=== PATIENT | male | born 1975 | race Caucasian/White ===

== ENCOUNTER 2023-07-01 16:27 | Emergency (ER) | payer SELFPAY ==
--- OUTSIDE RECORDS SUMMARY | 2023-07-01 16:30 | XMS REPORT | Continuity of Care Document ---
:1975 Author Organization [facility] t Address [address] [facility] [address] [place] [address] Care Team Providers Name Role Phone No, Pcp [facility] Primary Care Physician Unavailable LOVELY MALAGON Attending Clinician Unavailable LEO BARROS Attending Clinician Unavailable GABRIELLA MOTTA Attending Clinician Unavailable ANURADHA NELSON Attending Clinician Unavailable LOVELY MALAGON Admitting Clinician Unavailable LEO BARROS Admitting Clinician Unavailable GABRIELLA MOTTA Admitting Clinician Unavailable Payers Payer Name Policy Type Policy Number Effective Date Expiration Date S tracy ISABEL PPO OPEN [id number] 2017 00:00:00 [facility] NAP Problems Condition Condition Condition Status Onset Resolution Last Treating Co mments Source Name Details Category Date Date Treatment Clinician Date Acute on Acute on Disease [facility]ur[facility] pancreat[facility] dical is is 00 Center Abdominal Abdominal Disease Active [facility] Allergies, Adverse Reactions, Alerts Allergy Allergy Status Severity Reaction(s) Onset Inactive Treating Comm ents Source Name Type Date Date Clinician NO KNOWN Allergy Active [facility] Social Habit Start Date Stop Date Quantity Comments Source Sex Assigned At [birth year] LIANNE Jeronimo 00:00:00 [facility]:00 [facility] Medications This patient has no known medications. Vital Signs Vital Name Observation Time Observation Value Comments Source HEIGHT 2020-11-24 06:00:00 173.7 cm WEIGHT 2020-11-24 06:00:00 111.131 kg HEIGHT 2020-11-24 06:00:00 173.7 cm WEIGHT 2020-11-24 06:00:00 111.131 kg Procedures This patient has no known procedures. Plan of Care Planned Activity Planned Date Details Comments Source Future Scheduled 2023-11-27 Lipid panel (procedure) [facility] Test 00:00:00 [code = 50977904] Medical Ce nter Future Scheduled 2023-05-18 Influenza Vaccine (#1) [facility] [code = Influenza Vaccine [facility] Center (#1)] Future Scheduled 2022-09-[address] [facility] Test 00:00:00 (12+) [code = DEPRESSION Med [facility] Center SCREENING (12+)] Future Scheduled 2021-11-26 Screening for malignant [facility] Test 00:00:00 neoplasm of colon Medical Ce nter (procedure) [code = 853026081] Future Scheduled 2021-11-26 Screening for malignant [facility] Test 00:00:00 neoplasm of colon Medical Ce nter (procedure) [code = 547396103] Future Scheduled 1993 DTAP/TDAP/TD VACCINES ([address] [facility] Test 00:00:00 - Tdap) [code = Medical Cent er DTAP/TDAP/TD VACCINES (1 - Tdap)] Future Scheduled 1992-01-23 HEPATITIS C [facility] [code = HEPATITIS C Medical Center SCREENING] Future Scheduled [address] [facility] 00:00:00 virus screening Medical Cent er (procedure) [code = 746367545] Future Scheduled [address] [facility] Test 00:00:00 Counseling and Screening Med [facility] Center (12+) [code = Tobacco Cessation Counseling and Screening (12+)] Future Scheduled 1974 COVID-19 VACCINE (#1) [facility] 00:00:00 [code = COVID-19 VACCINE Med [facility] Center (#1)] Future Scheduled 1974 CT Colonography (combo) [facility] Test 00:00:00 [code = CT Colonography [facility] Center (combo)] Future Scheduled 1974 Screening for malignant [facility] Test 00:00:00 neoplasm of colon Medical Ce nter (procedure) [code = 397681921] Future Scheduled 1974 Screening for malignant [facility] Test 00:00:00 neoplasm of colon Medical Ce nter (procedure) [code = 724822444] Future Scheduled 1975 Sigmoidoscopy [code = [facility] Sigmoidoscopy] Medical Sera ferrera Encounters Start End Encounter Admission Attending Care Care Encounter Source Date/Time Date/Time Type Type Clinicians Facility Department ID 2020-11-24 Inpatient ER [facility] [id number] [facility] 04:53:00 [facility] 2023-06-30 2023-06-30 Inpatient ER PAPO, [facility] [id number] 17:09:00 20:12:00 OLADIPO -[id number] [facility] 2020-11-23 2020-11-24 Inpatient ER ÁNGELA, [facility] [id number] [place] 04:13:00 03:33:00 GABRIELLA -[id number] [facility] 2017-08-25 2017-08-25 Emergency ER NELSON, [facility] [id number] 12:37:00 18:23:00 ANURADHA -[id number] [facility] Results Test Description Test Time Test Comments Results Result Comments Source POCT-GLUCOSE METER 2020-11-26 15:51:00 Test Item Value Reference Range Interpretation Comme nts POC-GLUCOSE METER (BEAKER) 187 mg/dL 70-110 H : TESTED AT [address] (test code = 1538) [facility] [id number]: Operation Research Analyst/Techni bryan ID = [id number] for Alecia Briggs OCCULT BLOOD, [id number] 13:42:00 Test Item Value Reference Range Interpretation Comments FECAL OCCULT BLOOD (BEAKER) (test Negative Negative code = 618) POCT-GLUCOSE [id number] 11:44:00 Test Item Value Reference Range Interpretation Comments POC-GLUCOSE METER 168 mg/dL 70-110 H : TESTED A T [address] (BEAKER) (test code [address], = 15[address]) [facility] [place] [address]: Operation Research Analyst/Techni bryan ID = [id number] for Alecia Deal LIPID [id number] 07:52:00 Test Item Value Reference Range Interpretation Comments TRIGLYCERIDES (BEAKER) (test code 1275 mg/dL = 540) CHOLESTEROL (BEAKER) (test code = 406 mg/dL 631) HDL CHOLESTEROL (BEAKER) (test 17 mg/dL code = 976) Calculated LDL not valid if triglyceride >400 mg/dLTriglyceride Reference Range: Low Risk <150Borderline 150-199 High Risk 200-499 Very High Risk >=500Cholesterol Reference Range: Low Risk <200 Borderline 200-239 High Risk >240HDL Cholesterol Reference Range: Low Risk >=60 High Risk<40LDL Cholesterol Reference Range: Optimal <100 Near Optimal 100-129 Borderline 130-159 High 160-189 Very High >=190 Operation Research Analyst ID - [id number] ID - [id number] ID - [id number] METABOLIC [id number] 07:01:00 Test Item Value Reference Range Interpretation Comments TOTAL PROTEIN 6.7 gm/dL 6.0-8.5 (BEAKER) (test code = 770) ALBUMIN (BEAKER) 3.3 g/dL 3.5-5.0 L (test code = 1145) ALKALINE PHOSPHATASE 80 U/L 30-115 (BEAKER) (test code = 346) BILIRUBIN TOTAL 0.3 mg/dL 0.1-1.2 (BEAKER) (test code = 377) SODIUM (BEAKER) (test 138 meq/L 135-148 code = 381) POTASSIUM (BEAKER) 4.0 meq/L 3.6-5.5 (test code = 379) CHLORIDE (BEAKER) 104 meq/L 98-106 (test code = 382) CO2 (BEAKER) (test 21 meq/L 20-29 code = 355) BLOOD UREA NITROGEN 12 mg/dL 10-26 (BEAKER) (test code = 354) CREATININE (BEAKER) 0.82 mg/dL 0.50-1.20 (test code = 358) GLUCOSE RANDOM 144 mg/dL 70-110 H (BEAKER) (test code = 652) CALCIUM (BEAKER) 8.9 mg/dL 8.5-10.5 (test code = 697) AST (SGOT) (BEAKER) 19 U/L 5-40 (test code = 353) ALT (SGPT) (BEAKER) 23 U/L 5-50 (test code = 347) EGFR (BEAKER) (test 101 ESTIMATE D GFR IS code = 1092) mL/min/1.73 sq NOT ACCURA TE m CREATININE CLEARANCE IN PREDICTING GLOMERULAR FILTRATION RATE . ESTIMATED GFR I S NOT APPLICABLE FOR DIALYSIS PATIEN TS. Operation Research Analyst ID - [id number] ID - [id number] ID - [id number] ID - [id number] ID - [id number] ID - [id number] ID - [id number] ID - [id number] ID - [id number] ID - [id number] ID - [id number] ID - [id number] ID - [id number] ID - [id number] ID - [id number] ID - [id number] 2020-11-26 07:01:00 Test Item Value Reference Range Interpretation Comments LIPASE (BEAKER) (test code = 749) 63 U/L 6-51 H Operation Research Analyst ID - [id number] 06:56:00 Test Item Value Reference Range Interpretation Comments AMYLASE (BEAKER) (test code = 349) 45 U/L 30-110 Operation Research Analyst ID - [id number] W/PLT COUNT & AUTO [id number] 06:45:00 Test Item Value Reference Range Interpretation Comments WHITE BLOOD CELL COUNT (BEAKER) 8.1 K/ L 4.0-10.0 (test code = 775) RED BLOOD CELL COUNT (BEAKER) 3.51 M/ L 4.20-5.80 L (test code = 761) HEMOGLOBIN (BEAKER) (test code = 10.3 GM/DL 13.0-16.8 L 410) HEMATOCRIT (BEAKER) (test code = 30.5 % 36.0-50.0 L 411) MEAN CORPUSCULAR VOLUME (BEAKER) 86.9 fL 82.0-99.0 (test code = 753) MEAN CORPUSCULAR HEMOGLOBIN 29.3 pg 27.0-33.0 (BEAKER) (test code = 751) MEAN CORPUSCULAR HEMOGLOBIN CONC 33.8 GM/DL 32.0-36.0 (BEAKER) (test code = 752) RED CELL DISTRIBUTION WIDTH 14.3 % 12.0-15.0 (BEAKER) (test code = 412) PLATELET COUNT (BEAKER) (test 288 K/CU MM 150-430 code = 756) MEAN PLATELET VOLUME (BEAKER) 10.1 fL 6.0-11.5 (test code = 754) NUCLEATED RED BLOOD CELLS 0 /100 WBC 0-0 (BEAKER) (test code = 413) NEUTROPHILS RELATIVE PERCENT 62 % (BEAKER) (test code = 429) LYMPHOCYTES RELATIVE PERCENT 24 % (BEAKER) (test code = 430) MONOCYTES RELATIVE PERCENT 10 % (BEAKER) (test code = 431) EOSINOPHILS RELATIVE PERCENT 2 % (BEAKER) (test code = 432) BASOPHILS RELATIVE PERCENT 1 % (BEAKER) (test code = 437) NEUTROPHILS ABSOLUTE COUNT 5.01 K/ L 1.80-8.00 (BEAKER) (test code = 670) LYMPHOCYTES ABSOLUTE COUNT 1.97 K/ L 1.48-4.50 (BEAKER) (test code = 414) MONOCYTES ABSOLUTE COUNT (BEAKER) 0.79 K/ L 0.00-1.30 (test code = 415) EOSINOPHILS ABSOLUTE COUNT 0.15 K/ L 0.00-0.50 (BEAKER) (test code = 416) BASOPHILS ABSOLUTE COUNT (BEAKER) 0.06 K/ L 0.00-0.20 (test code = 417) IMMATURE GRANULOCYTES-RELATIVE 2 % 0-0 H PERCENT (BEAKER) (test code = 2801) POCT-GLUCOSE [id number] 21:17:00 Test Item Value Reference Range Interpretation Comments POC-GLUCOSE METER 209 mg/dL 70-110 H : [facility] (test code [facility] [address] [facility], = 1538) [place] [id number]: Operation Research Analyst/Techni bryan ID = [id number] for Leslie Medina POCT-GLUCOSE [id number] 16:31:00 Test Item Value Reference Range Interpretation Comments POC-GLUCOSE METER 139 mg/dL 70-110 H : Notified RN/MD: TESTED ([facility]) (test code AT [facility] [address] = 1538) [place] [address]: Operation Research Analyst/Techni bryan ID = [id number] for Thak er, [place] POCT-GLUCOSE [id number] 11:18:00 Test Item Value Reference Range Interpretation Comments POC-GLUCOSE METER 146 mg/dL 70-110 H : Notified RN/MD: TESTED ([facility]) (test code AT [facility] [address] = 1538) [place] [id number]: Operation Research Analyst/Techni bryan ID = [id number] for Thak er, [place] POCT-GLUCOSE [id number] 07:28:00 Test Item Value Reference Range Interpretation Comments POC-GLUCOSE METER 120 mg/dL 70-110 H : Notified RN/MD: TESTED ([facility]) (test code AT [facility] [address] = 1538) [place] [address]: Operation Research Analyst/Techni bryan ID = [id number] for Thak er, [place] COMPREHENSIVE METABOLIC [id number] 06:55:00 Test Item Value Reference Range Interpretation Comments TOTAL PROTEIN 6.7 gm/dL 6.0-8.5 (BEAKER) (test code = 770) ALBUMIN (BEAKER) 3.2 g/dL 3.5-5.0 L (test code = 1145) ALKALINE PHOSPHATASE 80 U/L 30-115 (BEAKER) (test code = 346) BILIRUBIN TOTAL 0.3 mg/dL 0.1-1.2 (BEAKER) (test code = 377) SODIUM (BEAKER) (test 135 meq/L 135-148 code = 381) POTASSIUM (BEAKER) 3.9 meq/L 3.6-5.5 (test code = 379) CHLORIDE (BEAKER) 104 meq/L 98-106 (test code = 382) CO2 (BEAKER) (test 19 meq/L 20-29 L code = 355) BLOOD UREA NITROGEN 9 mg/dL 10-26 L (BEAKER) (test code = 354) CREATININE (BEAKER) 0.81 mg/dL 0.50-1.20 (test code = 358) GLUCOSE RANDOM 140 mg/dL 70-110 H (BEAKER) (test code = 652) CALCIUM (BEAKER) 8.5 mg/dL 8.5-10.5 (test code = 697) AST (SGOT) (BEAKER) 11 U/L 5-40 (test code = 353) ALT (SGPT) (BEAKER) 12 U/L 5-50 (test code = 347) EGFR (BEAKER) (test 103 ESTIMATE D GFR IS code = 1092) mL/min/1.73 sq NOT ACCURA TE m CREATININE CLEARANCE IN PREDICTING GLOMERULAR FILTRATION RATE . ESTIMATED GFR I S NOT APPLICABLE FOR DIALYSIS PATIEN TS. Operation Research Analyst ID - JUSTINOperator ID - JUSTINOperator ID - JUSTINOperator ID - JUSTINOperator ID - JUSTINOperator ID - JUSTINOperator ID - JUSTINOperator ID - JUSTINOperator ID - JUSTINOperator ID - JUSTINOperator ID - JUSTINOperator ID - JUSTINOperator ID - JUSTINOperator ID - JUSTINOperator ID - JUSTINOperator ID - JUSTINSpecimen slightly lipemicLIPID [id number] 06:55:00 Test Item Value Reference Range Interpretation Comments TRIGLYCERIDES (BEAKER) (test code 1265 mg/dL = 540) CHOLESTEROL (BEAKER) (test code = 415 mg/dL 631) HDL CHOLESTEROL (BEAKER) (test 18 mg/dL code = 976) Calculated LDL not valid if triglyceride >400 mg/dLTriglyceride Reference Range: Low Risk <150Borderline 150-199 High Risk 200-499 Very High Risk >=500Cholesterol Reference Range: Low Risk <200 Borderline 200-239 High Risk >240HDL Cholesterol Reference Range: Low Risk >=60 High Risk <40LDL Cholesterol Reference Range: Optimal <100 Near Optimal 100-129 Borderline 130-159 High 160-189 Very High >=190 Operation Research Analyst ID - JUSTINOperator ID - JUSTINOperator ID - JUSTINSpecimen slightly [id number] 06:53:00 Test Item Value Reference Range Interpretation Comments LIPASE (BEAKER) (test code = 749) 59 U/L 6-51 H Operation Research Analyst ID - [id number] 06:45:00 Test Item Value Reference Range Interpretation Comments AMYLASE (BEAKER) (test code = 349) 37 U/L 30-110 Operation Research Analyst ID - JUSTINOperator ID - JUSTINOperator ID - JUSTINOperator ID - SHAYNE CBC W/PLT COUNT & AUTO [id number] 06:05:00 Test Item Value Reference Range Interpretation Comments WHITE BLOOD CELL COUNT (BEAKER) 10.5 K/ L 4.0-10.0 H (test code = 775) RED BLOOD CELL COUNT (BEAKER) 3.44 M/ L 4.20-5.80 L (test code = 761) HEMOGLOBIN (BEAKER) (test code = 9.9 GM/DL 13.0-16.8 L 410) HEMATOCRIT (BEAKER) (test code = 30.5 % 36.0-50.0 L 411) MEAN CORPUSCULAR VOLUME (BEAKER) 88.7 fL 82.0-99.0 (test code = 753) MEAN CORPUSCULAR HEMOGLOBIN 28.8 pg 27.0-33.0 (BEAKER) (test code = 751) MEAN CORPUSCULAR HEMOGLOBIN CONC 32.5 GM/DL 32.0-36.0 (BEAKER) (test code = 752) RED CELL DISTRIBUTION WIDTH 14.6 % 12.0-15.0 (BEAKER) (test code = 412) PLATELET COUNT (BEAKER) (test 252 K/CU MM 150-430 code = 756) MEAN PLATELET VOLUME (BEAKER) 10.4 fL 6.0-11.5 (test code = 754) NUCLEATED RED BLOOD CELLS 0 /100 WBC 0-0 (BEAKER) (test code = 413) NEUTROPHILS RELATIVE PERCENT 73 % (BEAKER) (test code = 429) LYMPHOCYTES RELATIVE PERCENT 18 % (BEAKER) (test code = 430) MONOCYTES RELATIVE PERCENT 7 % (BEAKER) (test code = 431) EOSINOPHILS RELATIVE PERCENT 1 % (BEAKER) (test code = 432) BASOPHILS RELATIVE PERCENT 1 % (BEAKER) (test code = 437) NEUTROPHILS ABSOLUTE COUNT 7.67 K/ L 1.80-8.00 (BEAKER) (test code = 670) LYMPHOCYTES ABSOLUTE COUNT 1.86 K/ L 1.48-4.50 (BEAKER) (test code = 414) MONOCYTES ABSOLUTE COUNT (BEAKER) 0.76 K/ L 0.00-1.30 (test code = 415) EOSINOPHILS ABSOLUTE COUNT 0.10 K/ L 0.00-0.50 (BEAKER) (test code = 416) BASOPHILS ABSOLUTE COUNT (BEAKER) 0.05 K/ L 0.00-0.20 (test code = 417) IMMATURE GRANULOCYTES-RELATIVE 1 % 0-0 H PERCENT (BEAKER) (test code = 2801) POCT-GLUCOSE [id number] 21:24:00 Test Item Value Reference Range Interpretation Comments POC-GLUCOSE METER 112 mg/dL 70-110 H : TESTED A T [facility] [address] (BEAKER) (test code [facility], = 1538) [place] [address]: Operation Research Analyst/Techni bryan ID = [id number] for Leslie Medina POCT-GLUCOSE [id number] 17:29:00 Test Item Value Reference Range Interpretation Comments POC-GLUCOSE METER 118 mg/dL 70-110 H : TESTED A T [facility] [address] (BEAKER) (test code [facility], = 1538) [place] [address]: Operation Research Analyst/Techni rbyan ID = [id number] for Kelvin Correae TSH/FREE T4 IF [id number] 13:06:00 Test Item Value Reference Range Interpretation Comments THYROID STIMULATING HORMONE 0.720 uIU/mL 0.350-5.500 (BEAKER) (test code = 772) Operation Research Analyst ID - [id number] 11:14:00 Test Item Value Reference Range Interpretation Comments POC-GLUCOSE METER 129 mg/dL 70-110 H : TESTED A T [facility] [address] (BEAKER) (test code [facility], = 1538) [place] [address]: Operation Research Analyst/Techni bryan ID = [id number] for Buff ord, Marisela COMPREHENSIVE METABOLIC [id number] 08:24:00 Test Item Value Reference Range Interpretation Comments TOTAL PROTEIN 7.0 gm/dL 6.0-8.5 (BEAKER) (test code = 770) ALBUMIN (BEAKER) 3.3 g/dL 3.5-5.0 L (test code = 1145) ALKALINE PHOSPHATASE 77 U/L 30-115 (BEAKER) (test code = 346) BILIRUBIN TOTAL 0.3 mg/dL 0.1-1.2 (BEAKER) (test code = 377) SODIUM (BEAKER) (test 134 meq/L 135-148 L code = 381) POTASSIUM (BEAKER) 4.1 meq/L 3.6-5.5 (test code = 379) CHLORIDE (BEAKER) 103 meq/L 98-106 (test code = 382) CO2 (BEAKER) (test 22 meq/L 20-29 code = 355) BLOOD UREA NITROGEN 10 mg/dL 10-26 (BEAKER) (test code = 354) CREATININE (BEAKER) 0.91 mg/dL 0.50-1.20 (test code = 358) GLUCOSE RANDOM 148 mg/dL 70-110 H (BEAKER) (test code = 652) CALCIUM (BEAKER) 8.3 mg/dL 8.5-10.5 L (test code = 697) AST (SGOT) (BEAKER) 13 U/L 5-40 (test code = 353) ALT (SGPT) (BEAKER) 9 U/L 5-50 (test code = 347) EGFR (BEAKER) (test 90 mL/min/1.73 ESTIMA CARLOS GFR IS code = 1092) sq m NOT ACCURATE CREATININE CLEARANCE IN PREDICTING GLOMERULAR FILTRATION RATE . ESTIMATED GFR I S NOT APPLICABLE FOR DIALYSIS PATIEN TS. Operation Research Analyst ID - [id number] ID - [id number] ID - [id number] ID - [id number] ID - [id number] ID - [id number] ID - [id number] ID - [id number] ID - [id number] ID - [id number] ID - [id number] ID - [id number] ID - [id number] ID - [id number] ID - [id number] ID - [id number] ID - [id number] ID - [id number] ID - [id number] moderately lipemicHEMOGLOBIN [id number] 08:18:00 Test Item Value Reference Range Interpretation Comments HEMOGLOBIN A1C (BEAKER) (test code = 8.7 % 4.3-6.1 H 368) Operation Research Analyst ID - [id number] W/PLT COUNT & AUTO [id number] 08:09:00 Test Item Value Reference Range Interpretation Comments WHITE BLOOD CELL COUNT (BEAKER) 14.0 K/ L 4.0-10.0 H (test code = 775) RED BLOOD CELL COUNT (BEAKER) 3.64 M/ L 4.20-5.80 L (test code = 761) HEMOGLOBIN (BEAKER) (test code = 10.7 GM/DL 13.0-16.8 L 410) HEMATOCRIT (BEAKER) (test code = 32.0 % 36.0-50.0 L 411) MEAN CORPUSCULAR VOLUME (BEAKER) 87.9 fL 82.0-99.0 (test code = 753) MEAN CORPUSCULAR HEMOGLOBIN 29.4 pg 27.0-33.0 (BEAKER) (test code = 751) MEAN CORPUSCULAR HEMOGLOBIN CONC 33.4 GM/DL 32.0-36.0 (BEAKER) (test code = 752) RED CELL DISTRIBUTION WIDTH 14.7 % 12.0-15.0 (BEAKER) (test code = 412) PLATELET COUNT (BEAKER) (test 219 K/CU MM 150-430 code = 756) MEAN PLATELET VOLUME (BEAKER) 10.4 fL 6.0-11.5 (test code = 754) NUCLEATED RED BLOOD CELLS 0 /100 WBC 0-0 (BEAKER) (test code = 413) NEUTROPHILS RELATIVE PERCENT 78 % (BEAKER) (test code = 429) LYMPHOCYTES RELATIVE PERCENT 14 % (BEAKER) (test code = 430) MONOCYTES RELATIVE PERCENT 7 % (BEAKER) (test code = 431) EOSINOPHILS RELATIVE PERCENT 0 % (BEAKER) (test code = 432) BASOPHILS RELATIVE PERCENT 0 % (BEAKER) (test code = 437) NEUTROPHILS ABSOLUTE COUNT 10.89 K/ L 1.80-8.00 H (BEAKER) (test code = 670) LYMPHOCYTES ABSOLUTE COUNT 2.01 K/ L 1.48-4.50 (BEAKER) (test code = 414) MONOCYTES ABSOLUTE COUNT (BEAKER) 0.94 K/ L 0.00-1.30 (test code = 415) EOSINOPHILS ABSOLUTE COUNT 0.06 K/ L 0.00-0.50 (BEAKER) (test code = 416) BASOPHILS ABSOLUTE COUNT (BEAKER) 0.04 K/ L 0.00-0.20 (test code = 417) IMMATURE GRANULOCYTES-RELATIVE 1 % 0-0 H PERCENT (BEAKER) (test code = 2801) POCT-GLUCOSE [id number] 08:04:00 Test Item Value Reference Range Interpretation Comments POC-GLUCOSE METER 150 mg/dL 70-110 H : TESTED A T [facility] [address] (BEAKER) (test code [facility] [address], = 1538) [facility] [address]: Operation Research Analyst/Techni bryan ID = [id number] for Marisela Correa
[2023-07-01] MEDS ORDERED: ASPIRIN 81 MG CHEWABLE TABLET ONE (16:56)
[2023-07-01] MEDS ORDERED: MORPHINE 4 MG/ML SYR ONE (16:56)
[2023-07-01] MEDS ORDERED: ONDANSETRON 4 MG/2 ML VIAL ONE (16:56)
--- NOTE | 2023-07-01 17:03 | ER ---
Nurse's Notes [facility] Name: Rick Burroughs Age: 48 yrs Sex: Male : 1975 Arrival Date: 07/01/2023 Time: 16:27 Bed 7 Private MD: Diagnosis: ST elevation (STEMI) myocardial infarction of unspecified site;Hypo-osmolality and hyponatremia;Hyperglycemia, unspecified;Leukocytosis Presentation: 07/01 16:39 Chief complaint: Crushing chest pain that started yesterday while mowing yard, seen at [facility] and admitted to ICU, left AMA after told he was having a STEMI. Today c/o left sided chest pressure that radiates to left arm and left neck. 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 Coronavirus screen: At this time, the client does not indicate any symptoms associated with coronavirus-19. Ebola Screen: No symptoms or risks identified at this time. Initial Sepsis Screen: Does the patient meet any 2 criteria? No. Patient's initial sepsis screen is negative. Does the patient have a suspected source of infection? No. Patient's initial sepsis screen is negative. Risk Assessment: Do you want to hurt yourself or someone else? Patient reports no desire to harm self or others. Onset of symptoms was June 30, 2023. 16:39 Method Of Arrival: Ambulatory hb 16:39 Acuity: SHABANA 1 hb Historical: - Allergies: 16:42 No Known Allergies; hb - Home Meds: 16:42 Metformin Oral [Active]; hb - PMHx: 16:42 DM2; hb - PSHx: 16:42 None; hb - Immunization history:: Adult Immunizations up to date. - Social history:: Smoking status: Patient reports the use of cigarette tobacco products, smokes one pack cigarettes per day. Screenin:33 [facility] ED Fall Risk Assessment (Adult) History of falling in the last 3 months, rs5 including since admission No falls in past 3 months (0 pts) Confusion or Disorientation No (0 pts) Intoxicated or Sedated No (0 pts) Impaired Gait No (0 pts) Mobility Assist Device Used No (0 pt) Altered Elimination No (0 pt) Score/Fall Risk Level 0 - 2 = Low Risk Oriented to surroundings, Maintained a safe environment. Abuse screen: Denies threats or abuse. Nutritional screening: No deficits noted. Tuberculosis screening: No symptoms or risk factors identified. Assessment: 16:33 General: Appears distressed, uncomfortable, Behavior is cooperative, anxious. rs5 16:33 Pain: Complains of pain in chest Pain radiates to left arm Pain currently is 9 out of rs5 10 on a pain scale. Quality of pain is described as aching, heavy, pressure, Pain began 1 day ago. Is continuous, Noted to be grimacing. Neuro: Level of Consciousness is awake, alert, obeys commands, Oriented to person, place, time, situation. Cardiovascular: Heart tones S1 S2 present Rhythm is regular. Respiratory: Airway is patent Respiratory effort is even, labored, Respiratory pattern is regular, symmetrical, Breath sounds are clear bilaterally. GI: Abdomen is round non-distended, Bowel sounds present X 4 quads. Abd is soft and non tender X 4 quads. : No signs and/or symptoms were reported regarding the genitourinary system. EENT: No signs and/or symptoms were reported regarding the EENT system. Derm: Skin is intact, Skin is pink, warm \T\ dry. Musculoskeletal: Range of motion: intact in all extremities. 17:05 Pain: Complains of pain in chest Pain radiates to left arm Pain currently is 3 out of rs5 10 on a pain scale. Quality of pain is described as aching, Is continuous. 17:05 Cardiovascular: Rhythm is ST-elevation. Respiratory: Airway is patent Respiratory rs5 effort is even, unlabored, Respiratory pattern is regular, symmetrical. 19:11 Reassessment:. rs5 Vital Signs: 16:35 BP 154 / 100; Pulse 92; Resp 19; Temp 98; Pulse Ox 97% on R/A; rs5 16:39 Weight 106.59 kg (R); Height 5 ft. 7 in. (R); cm10 16:39 BP 147 / 106; Pulse 98; Resp 14; Temp 98.3; Pulse Ox 95% on R/A; Pain 7/10; hb 17:10 BP 150 / 98; Pulse 82; Resp 18; Pulse Ox 98% on 2 lpm NC; rs5 17:20 BP 145 / 96; Pulse 80; Resp 18; Pulse Ox 99% on 2 lpm NC; rs5 16:39 Body Mass Index 36.81 (106.59 kg, 170.18 cm) cm10 16:39 Pain Scale: Adult hb ED Course: 16:28 Patient arrived in ED. im 16:30 He Aguilar MD is Attending Physician. ec2 16:33 Patient has correct armband on for positive identification. Bed in low position. Side rs5 rails up X2. Adult w/ patient. Client placed on continuous cardiac and pulse oximetry monitoring. NIBP monitoring applied. laboratory monitor on. Pulse ox on. NIBP on. 16:35 Inserted saline lock: 18 gauge in left antecubital area, using aseptic technique. rs5 16:35 Patient maintains SpO2 saturation greater than 95% on room air. rs5 16:40 Initial lab(s) drawn, by me, sent to lab. Inserted saline lock: 18 gauge in right aa5 antecubital area, using aseptic technique. Blood collected. 16:42 Triage completed. hb 16:43 Bijan Munoz RN is Primary Nurse. rs5 16:44 Arm band placed on. hb 16:46 initiated a transfer with Jazz Fry Rn from the [facility]. eb 16:55 connected the production leader command and control systems integrator for [facility] with Dr. Aguilar for patient eb transfer consultation. 17:00 administrative approval given by Jazz Fry Rn/ patient has been accepted to [facility] laborer heading/ Dr. Radha Alberto has accepted the patient in transfer/ nurse connected with laborer wrecking and salvaging to get report. 17:04 Report given to ELIZA Demarco in laborer heading. hb 17:09 XRAY Chest (1 view) In Process Unspecified. EDMS 17:30 No provider procedures requiring assistance completed. rs5 17:30 Patient admitted, IV remains in place. rs5 Administered Medications: 16:48 Drug: morphine IVP or IV 4 mg IVP once over 4 mins Route: IVP; Infused Over: 4 mins; cm10 Site: right antecubital; 17:05 Follow up: Response: No adverse reaction; Pain is decreased rs5 16:48 Drug: Ondansetron IVP 4 mg IVP once; over 2 minutes Route: IVP; Site: right antecubital;cm10 18:51 Follow up: Response: No adverse reaction rs5 16:48 Drug: Aspirin PO 162 mg PO once Route: PO; cm10 17:15 Follow up: Response: No adverse reaction rs5 17:05 Drug: Heparin (MS-Bolus No thrombolytic) - HEParin IVP 60 units/kg IVP once; Max 5000 rs5 units {Co-Signature: juvencio (Asuncion Oliveros RN).} Route: IVP; Site: left antecubital; 17:20 Follow up: Response: No adverse reaction; Pain is decreased rs5 17:05 Drug: Heparin (MS Drip) 12 units/kg/hr - ([place] [address] units, D5W IV 500 ml) IV at rs5 calculated rate Per protocol; Max initial rate 1000 units/hr {Co-Signature: juvencio (Asuncion Oliveros RN).} Route: IV; Rate: calculated rate; Site: left antecubital; 17:20 Follow up: Response: No adverse reaction rs5 17:30 Follow up: IV Status: Infusion continued upon transfer rs5 Medication: 17:30 VIS not applicable for this client. rs5 Outcome: 17:02 ER care complete, transfer ordered by . ec2 17:30 Transferred by helicopter to [facility], Transfer form completed. rs5 X-rays sent w/ patient. Note: report given to [facility] 17:30 Condition: stable 17:30 Discharge instructions given to patient, family, Instructed on the need for transfer, 17:30 Demonstrated understanding of instructions, 17:31 Patient left the ED. aa5 Signatures: Dispatcher [employer] Nupur Bellamy RN RN aa5 Asuncion Oliveros RN RN Nirali Dietrich Ricky, RN RN rs5 Birgit Lema Clarissa, RN RN cm10 He Aguilar MD MD [facility] Asuncion Oliveros RN Corrections: (The following items were deleted from the chart) 19:11 16:33 Cardiovascular: Heart tones S1 S2 present Rhythm is regular rs5 rs5 19:12 17:30 Transferred by helicopter to [facility], rs5 rs5 19:12 17:30 Transferred by helicopter to [facility], Note: report given to rs5 [facility] rs5
--- NOTE | 2023-07-01 17:03 | EDPHYS ---
Physician Documentation [facility] Name: Rick Burroughs Age: 48 yrs Sex: Male : 1975 Arrival Date: 07/01/2023 Time: 16:27 Bed 7 Private MD: ED Physician He Aguilar HPI: 07/01 16:49 This 48 yrs old Male presents to ER via Ambulatory with complaints of Chest ec2 Pain. 16:49 Patient arrives today due to concern for crushing chest pain that started yesterday ec2 while mowing the lawn. Patient reports that the pain is radiating to the bilateral arms and into the left neck. Patient reports a history of hypertension, diabetes as well as hyperlipidemia. Patient reports that he left AGAINST MEDICAL ADVICE at another facility, states that he was told he was having an AK and ultimately left as he was afraid. Patient had taken 162 mg of aspirin prior to arrival.. Historical: - Allergies: 16:42 No Known Allergies; hb - Home Meds: 16:42 Metformin Oral [Active]; hb - PMHx: 16:42 DM2; hb - PSHx: 16:42 None; hb - Immunization history:: Adult Immunizations up to date. - Social history:: Smoking status: Patient reports the use of cigarette tobacco products, smokes one pack cigarettes per day. ROS: 16:49 Cardiovascular: Positive for chest pain. ec2 Exam: 16:49 Constitutional: PHYSICAL EXAMINATION: GENERAL: Uncomfortable individual. HEENT: ec2 Extraocular motions intact CV: Regular rate LUNGS: No respiratory distress ABDOMEN: Nondistended SKIN: No rash NEUROLOGIC: Moves all extremities equally normally Vital Signs: 16:35 BP 154 / 100; Pulse 92; Resp 19; Temp 98; Pulse Ox 97% on R/A; rs5 16:39 Weight 106.59 kg (R); Height 5 ft. 7 in. (R); cm10 16:39 BP 147 / 106; Pulse 98; Resp 14; Temp 98.3; Pulse Ox 95% on R/A; Pain 7/10; hb 17:10 BP 150 / 98; Pulse 82; Resp 18; Pulse Ox 98% on 2 lpm NC; rs5 17:20 BP 145 / 96; Pulse 80; Resp 18; Pulse Ox 99% on 2 lpm NC; rs5 16:39 Body Mass Index 36.81 (106.59 kg, 170.18 cm) cm10 16:39 Pain Scale: Adult hb MDM: 16:31 Patient medically screened. ec2 16:32 ED course: Patient arrives today due to concern for question chest pain. Examination ec2 normal for uncomfortable individual. EKG independently reviewed interpreted by me, concerning for STEMI in the anterolateral leads with inferior depressions, shows normal sinus rhythm, rate of 96, nonconcerning intervals. I discussed case with our on-call lockstitcher, Dr. KINGSTON, who recommended transfer to another facility for STEMI. Patient given an additional 162 mg of aspirin, 4 mg of morphine as well as 4 mg of Zofran. Currently pending transfer center and cardiology consultation for thrombolytics as well as antiplatelet agents.. 16:49 Data reviewed: vital signs. ec2 16:56 ED course: I discussed this with who agrees to take patient to Telemetry Technician. We ec2 will proceed with transfer, emergent. We will give the patient heparin bolus and drip, will defer antiplatelet agent at this time, also defer TNK per the request of cardiology due to patient having Q waves already present.. 17:10 ED course: Patient and family updated on plan of care and agreeable.. ec2 17:20 ED course: Chest x-ray independently reviewed interpreted by me, shows no acute ec2 intrathoracic process.. 17:21 ED course: Patient metabolic profile remarkable for hyperglycemia, hyponatremia.. ec2 07/01 16:34 Order name: Basic Metabolic Panel ec2 07/01 16:34 Order name: CBC with Diff; Complete Time: 17:24 ec2 07/01 16:34 Order name: Troponin HS ec2 07/01 16:41 Order name: PT-INR; Complete Time: 17:19 aa5 07/01 16:41 Order name: Ptt, Activated; Complete Time: 17:19 aa5 07/01 16:52 Order name: Glucose, Ancillary Testing; Complete Time: 17:13 EDMS 07/01 16:34 Order name: XRAY Chest (1 view); Complete Time: 17:19 ec2 07/01 16:34 Order name: EKG; Complete Time: 16:35 ec2 07/01 16:34 Order name: Cardiac monitoring; Complete Time: 16:41 ec2 07/01 16:34 Order name: EKG - Nurse/Tech; Complete Time: 16:41 ec2 07/01 16:34 Order name: IV Saline Lock; Complete Time: 16:41 ec2 07/01 16:34 Order name: Labs collected and sent; Complete Time: 16:41 ec2 07/01 16:34 Order name: O2 Per Protocol; Complete Time: 16:41 ec2 07/01 16:34 Order name: O2 Sat Monitoring; Complete Time: 16:41 ec2 Administered Medications: 16:48 Drug: morphine IVP or IV 4 mg IVP once over 4 mins Route: IVP; Infused Over: 4 mins; cm10 Site: right antecubital; 17:05 Follow up: Response: No adverse reaction; Pain is decreased rs5 16:48 Drug: Ondansetron IVP 4 mg IVP once; over 2 minutes Route: IVP; Site: right antecubital;cm10 18:51 Follow up: Response: No adverse reaction rs5 16:48 Drug: Aspirin PO 162 mg PO once Route: PO; cm10 17:15 Follow up: Response: No adverse reaction rs5 17:05 Drug: Heparin (AK-Bolus No thrombolytic) - HEParin IVP 60 units/kg IVP once; Max 5000 rs5 units {Co-Signature: juvencio (Asuncion Oliveros RN).} Route: IVP; Site: left antecubital; 17:20 Follow up: Response: No adverse reaction; Pain is decreased rs5 17:05 Drug: Heparin (AK Drip) 12 units/kg/[place] - ([place] [address] units, D5W IV 500 ml) IV at rs5 calculated rate Per protocol; Max initial rate 1000 units/hr {Co-Signature: hb (Asuncion Oliveros RN).} Route: IV; Rate: calculated rate; Site: left antecubital; 17:20 Follow up: Response: No adverse reaction rs5 17:30 Follow up: IV Status: Infusion continued upon transfer rs5 Disposition: 17:01 Critical Care:. ec2 Disposition Summary: 07/01/23 17:02 Transfer Ordered Notes: Transfer Location: [facility] ec2 Reason: Higher level of care ec2 Condition: Serious ec2 Problem: new ec2 Symptoms: are unchanged ec2 Accepting Physician: DR. EDITH VIERA, CARDIOLOGY, [facility] CT(07/01/23 17:31) aa5 Diagnosis - ST elevation (STEMI) myocardial infarction of unspecified site ec2 - Hypo-osmolality and hyponatremia ec2 - Hyperglycemia, unspecified ec2 - Leukocytosis ec2 Forms: - Medication Reconciliation Form ec2 - SBAR form ec2 Critical care time excluding procedures: 17:01 Critical care time: Bedside Care: 25 minutes, Consultation: 10 minutes. Total time: 35 ec2 minutes Signatures: Dispatcher [employer] EDMS Nupur Talbert RN RN aa5 Asuncion Oliveros RN RN hb Bijan Munoz RN RN rs5 Karyn Felix RN RN cm10 He Aguilar MD MD ec2 Asuncion Oliveros RN hb Corrections: (The following items were deleted from the chart) 16:56 16:49 ED course: Patient arrives today due to concern for question chest pain. ec2 Examination normal for uncomfortable individual. EKG independently reviewed inter by me, concerning for STEMI in the anterolateral leads with inferior depressions. I discussed case with our on-call lockstitcher, Dr. KINGSTON, who recommended transfer to another facility for STEMI. Patient given an additional 162 mg of aspirin, 4 mg of morphine as well as 4 mg of Zofran. Currently pending transfer center and cardiology consultation for thrombolytics as well as antiplatelet agents.. ec2 17:09 16:32 ED course: Patient arrives today due to concern for question chest pain. ec2 Examination normal for uncomfortable individual. EKG independently reviewed inter by me, concerning for STEMI in the anterolateral leads with inferior depressions. I discussed case with our on-call lockstitcher, Dr. KINGSTON, who recommended transfer to another facility for STEMI. Patient given an additional 162 mg of aspirin, 4 mg of morphine as well as 4 mg of Zofran. Currently pending transfer center and cardiology consultation for thrombolytics as well as antiplatelet agents.. ec2 17:22 17:02 DR. EDITH VIERA, CARDIOLOGY, [facility] CT ec2 ec2 17:24 17:22 DR. EDITH VIERA, CARDIOLOGY, [facility] CT ec2 ec2 17:31 17:24 DR. EDITH VIERA, CARDIOLOGY, [facility] CT ec2 aa5
[2023-07-01 17:11] LABS: Potassium 4.3 mEq/L (3.5-5.1)
[2023-07-01] MEDS ORDERED: HEPARIN/D5W 25,000 UNIT/500 ML BAG IV ONE (17:12)
[2023-07-01] MEDS ORDERED: HEPARIN 5000 UNIT/ML 1 ML VIAL ONE (17:12)
[2023-07-01 17:14] LABS: Protime INR 1.17
[2023-07-01 17:17] LABS: Absolute Lymphocytes (CBC) 2.7 K/uL (0.7-4.9); Hematocrit 40.7 % (39.6-49.0); Lymphocytes % 14.6 % (15.3-44.8); MPV 9.5 fL (7.6-11.3); Platelets 214 thou/uL (152-406); RBC Red Blood Cell Count 4.63 M/uL (4.33-5.43)
--- NOTE | 2023-07-01 17:18 | RAD REPORT ---
EXAM DESCRIPTION: RAD - Chest Single View - 07/01/2023 5:07 pm CLINICAL HISTORY: CHEST PAIN Chest pain. COMPARISON: No comparisons FINDINGS: Portable technique limits examination quality. Mild interstitial pulmonary edema suspected. The heart is upper limit normal in size No displaced fra ctures. IMPRESSION: Mild interstitial pulmonary edema.
[2023-07-01 17:36] VITALS: BP 147/106; TEMP 98.3; O2SAT 95
--- NOTE | 2023-07-02 17:03 | EKG ---
Test Date: 2023-07-01 Test Time: 16:33:50 Head Chopper: GILA MEASUREMENT RESULTS: Intervals: Rate: 96 [place]: 132 QRSD: 104 QT: 374 QTc: 472 [place]: P: 23 [place]: 132 QRS: 90 T: 57 INTERPRETIVE STATEMENTS: Normal sinus rhythm Rightward axis Low voltage QRS RSR' or QR pattern in V1 suggests right ventricular conduction delay Inferior infarct, possibly acute Cannot rule out Anteroseptal infarct, age undetermined ACUTE [place] / STEMI Abnormal ECG Compared to ECG 07/01/2023 16:33:20 RSR' in V1 or V2 now present Incomplete right bundle-branch block no longer present Prolonged QT interval no longer present Myocardial infarct finding still present Electronically Signed On 07-02-23 17:02:16 CDT by Ike Rashid
--- NOTE | 2023-07-02 17:04 | EKG ---
Test Date: 2023-07-01 Test Time: 16:33:20 Stonework Tracer: GILA MEASUREMENT RESULTS: Intervals: Rate: 98 [place]: 126 QRSD: 104 QT: 396 QTc: 505 [place]: P: 56 [place]: 126 QRS: 92 T: 61 INTERPRETIVE STATEMENTS: Normal sinus rhythm Rightward axis Low voltage QRS Incomplete right bundle branch block Inferior infarct, possibly acute Cannot rule out Anteroseptal infarct, age undetermined Prolonged QT ACUTE [place] / STEMI Abnormal ECG No previous ECG available for comparison Electronically Signed On 07-02-23 17:02:25 CDT by Ike Rashid
== END 2023-07-01 17:31 | disposition short-term general hospital (02) ==
LOC: ER 16:27
DX: I21.3 ST elevation (STEMI) myocardial infarction of unspecified site (principal); E87.1 Hypo-osmolality and hyponatremia; E11.65 Type 2 diabetes mellitus with hyperglycemia; D72.829 Elevated white blood cell count, unspecified
CPT/HCPCS: 36415; 71045; 80048; 82947; 84484; 85025; 85610; 85730; 93005; 99285; J1644; J2405